=== PATIENT | female | born 1995 | race Caucasian/White ===

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

== ENCOUNTER → 2017-05-20 | Outpatient (CLI) | payer OTHER ==
[~2017-05-20] MED LIST changes: +MONISTAT SOOTHI42 GM T; +MONTELUKAST SOD10 MG PO; +Minocycline HC100 MG PO
== END ==
LOC: RAD 10:53
DX: R07.89 Other chest pain (principal); R06.02 Shortness of breath

== ENCOUNTER 2017-06-09 13:29 | Emergency (ER) | payer OTHER ==
[~2017-06-09] VITALS: Ht 160 cm; Wt 59.0 kg
[2017-06-09] MEDS ORDERED: DULE1ARO INH (13:39)
[2017-06-09] MEDS ORDERED: SEROQUEL50 MG PO (13:39)
[2017-06-09] MEDS ORDERED: PREDNISONE20 M1 PO (14:08)
== END 2017-06-09 14:52 | disposition home or self-care (01) ==
LOC: ED 13:29
DX: L23.9 Allergic contact dermatitis, unspecified cause (principal); Z88.1 Allergy status to other antibiotic agents; Z79.899 Other long term (current) drug therapy

== ENCOUNTER 2019-06-09 13:29 | Emergency (ER) | payer OTHER ==
[~2019-06-09] VITALS: Ht 160 cm; Wt 59.0 kg
[~2019-06-09 13:29] MED LIST changes: +DULE1ARO INH; +PREDNISONE20 M1 PO; +SEROQUEL50 MG PO
[2019-06-09] MEDS ORDERED: CEFDINIR300 MG PO (15:49)
[2019-06-09] MEDS ORDERED: TESSALON PERLE100 M1 PO (15:49)
[2019-06-09] MEDS ORDERED: ZYRTEC10 MG PO (15:49)
== END 2019-06-09 17:17 | disposition home or self-care (01) ==
LOC: ED 13:29
DX: H66.91 Otitis media, unspecified, right ear (principal); J45.909 Unspecified asthma, uncomplicated; Z88.2 Allergy status to sulfonamides; Z79.899 Other long term (current) drug therapy

== ENCOUNTER 2019-08-11 08:28 | Emergency (ER) | payer OTHER ==
[~2019-08-11] VITALS: Ht 160 cm; Wt 59.0 kg
[~2019-08-11 08:28] MED LIST changes: +CEFDINIR300 MG PO; +TESSALON PERLE100 M1 PO; +ZYRTEC10 MG PO
[2019-08-11] MEDS ORDERED: ATARAX,VISTARIL50 MG PO (08:52)
[2019-08-11 09:11] LABS: CLARITY CLEAR (CLEAR); COLOR YELLOW (YELLOW)
[2019-08-11 09:12] LABS: BILIRUBIN NEGATIVE (NEGATIVE); BLOOD NEGATIVE (NEGATIVE); GLUCOSE NEGATIVE (NEGATIVE); KETONE NEGATIVE (NEGATIVE); LEUKO ESTERASE NEGATIVE (NEGATIVE); NITRITE NEGATIVE (NEGATIVE); UROBILINOGEN 0.2 E.U./dl (0.2-1.0)
[2019-08-11 09:15] LABS: RBC 0-2 rbc/hpf (0-2); WBC 0-2 wbc/hpf (0-5)
== END 2019-08-11 09:24 | disposition home or self-care (01) ==
LOC: ED 08:28
PROVIDERS: Emergency Medicine
DX: L30.9 Dermatitis, unspecified (principal); R30.9 Painful micturition, unspecified; Z88.2 Allergy status to sulfonamides; Z79.899 Other long term (current) drug therapy; Z79.2 Long term (current) use of antibiotics

== ENCOUNTER → 2020-05-06 | Outpatient (CLI) | payer OTHER ==
[~2020-05-06] MED LIST changes: +ATARAX,VISTARIL50 MG PO
== END | disposition home or self-care (01) ==
LOC: COVID19 14:29
PROVIDERS: ATTEND Internal Medicine Nephrology
DX: Z20.828 Contact with and (suspected) exposure to other viral communicable diseases (principal)